=== PATIENT | male | born 1980 | race Caucasian/White ===

== ENCOUNTER → 2020-11-04 | Outpatient (CLI) | payer OTHER ==
[~2020-11-04] MED LIST: NORCO 10-325 T1 EACH PO; NORCO 5-325 TA1 EACH PO; ZOFRAN ODT 4 MG4 MG PO
== END ==
LOC: SLEEP 14:25
DX: G47.33 Obstructive sleep apnea (adult) (pediatric) (principal); G47.19 Other hypersomnia; R06.83 Snoring
CPT/HCPCS: 95810